=== PATIENT | female | born 1985 | race Caucasian/White ===

== ENCOUNTER 2018-05-12 08:35 | Emergency (ER) | payer OTHER, MEDICAID ==
[2018-05-12 08:41] VITALS: BP 116/82
[2018-05-12 09:16] LABS: APPEARANCE,URINE CLEAR; BILIRUBIN,URINE NEGATIVE (NEGATIVE); COLOR,URINE YELLOW; GLUCOSE, URINE NEGATIVE (NEGATIVE); KETONES,URINE NEGATIVE (NEGATIVE); LEUKOCYTE ESTERASE,URINE NEGATIVE (NEGATIVE); NITRITE,URINE NEGATIVE (NEGATIVE); PROTEIN,URINE NEGATIVE (NEGATIVE); URINE SPECIFIC GRAVITY 1.009; UROBILINOGEN,URINE NEGATIVE mg/dL (<2.0)
--- NOTE | 2018-05-12 09:26 | ER Document Report ---
ED GI/ - General Chief Complaint: Vaginal Bleeding Stated Complaint: VAGINAL BLEEDING Time Seen by Provider: 05/12/18 09:19 Mode of Arrival: Ambulatory Information source: Patient Notes: 32-year-old female patient comes emergency room for heavy vaginal bleeding in . Patient reports she began spotting Saturday morning 05/09/2018, Saturday evening she was bleeding about 1 pad per hour so she went to the emergency room at [facility]. An ultrasound showed a 6-week viable IUP with a heartbeat. She does not know what her hormone level was. She states her blood type is a positive. She continued to bleed through the weekend like a heavy period, although it got a little dog sitter last night. This morning while driving to work she felt a d[place] of blood and got dizzy. She found she had blood through the pad. She is now here for evaluation. TRAVEL OUTSIDE OF THE [place] IN LAST 30 DAYS: No - Related Data Allergies/Adverse Reactions: No Known Allergies Allergy (Verified 05/12/18 08:37) Past Medical History - General Information source: Patient Last Menstrual Period: 03/14/18 - Social History Smoking Status: Never Smoker Cigarette use (# per day): No Chew tobacco use (# tins/day): No Smoking Education Provided: No Frequency of alcohol use: None Drug Abuse: None Lives with: Family, Spouse/Significant other Family History: Reviewed & Not Pertinent Patient has suicidal ideation: No Patient has homicidal ideation: No - Medical History Medical History: Negative Past Surgical History: Reports: Hx Breast Surgery - lumpectomy bilateral, Hx Oral Surgery - wisdom, Hx Orthopedic Surgery - Ganglion cyst removed from left wrist x2 Review of Systems - Review of Systems Constitutional: No symptoms reported EENT: No symptoms reported Cardiovascular: No symptoms reported Respiratory: No symptoms reported Gastrointestinal: No symptoms reported Genitourinary: No symptoms reported Female Genitourinary: See HPI Musculoskeletal: No symptoms reported Skin: No symptoms reported Hematologic/Lymphatic: No symptoms reported Neurological/Psychological: No symptoms reported Physical Exam - Vital signs Vitals: Temp Pulse Resp BP Pulse Ox 97.7 F 64 18 116/82 100 05/12/18 08:39 05/12/18 08:39 05/12/18 08:39 05/12/18 08:39 05/12/18 08:39 Interpretation: Normal - Notes Notes: PHYSICAL EXAMINATION: GENERAL: Well-appearing, well-nourished and in no acute distress. HEAD: Atraumatic, normocephalic. EYES: Pupils equal round and reactive to light, extraocular movements intact, sclera anicteric, conjunctiva are normal. ENT: nares patent, oropharynx clear without exudates. Moist mucous membranes. NECK: Normal range of motion, supple without lymphadenopathy LUNGS: Breath sounds clear to auscultation bilaterally and equal. No wheezes rales or rhonchi. HEART: Regular rate and rhythm without murmurs ABDOMEN: Soft, nontender, normoactive bowel sounds. No guarding, no rebound. No masses appreciated. EXTREMITIES: Normal range of motion, no pitting or edema. No cyanosis. NEUROLOGICAL: Cranial nerves grossly intact. Normal speech, normal gait. Normal sensory, motor, and reflex exams. PSYCH: Normal mood, normal affect. SKIN: Warm, Dry, normal turgor, no rashes or lesions noted. Course - Re-evaluation Re-evalutation: 05/12/18 12:14 Records obtained by the peripheral vascular tech showed the ultrasound on 05/09/2018 showed an intrauterine gestation measuring 6 weeks 0 days, with a heart rate of 58. There was a small subchorionic hemorrhage. The hCG level that day was 1278.9 The hCG level now is 186.9, and the ultrasound does not show a visualized intra- or extrauterine . - Vital Signs Vital signs: Temp Pulse Resp BP Pulse Ox 97.7 F 64 18 116/82 100 05/12/18 08:39 05/12/18 08:39 05/12/18 08:39 05/12/18 08:39 05/12/18 08:39 - Laboratory Result Diagrams: 05/12/18 09:43 Laboratory results interpreted by me: 05/12/18 05/12/18 05/12/18 08:50 09:43 09:43 WBC 2.7 L Plt Count 149 L Absolute Neutrophils 1.2 L Beta HCG, Quant 186.89 H Urine Blood LARGE H Urine HCG, Qual POSITIVE H Discharge - Discharge Clinical Impression: Complete miscarriage Condition: Stable Disposition: HOME, SELF-CARE Additional Instructions: Miscarriage You have had a miscarriage (medically called a "spontaneous "). The miscarriage occurred because the fetus did not develop normally. There is nothing you did to cause it, and nothing you could have done to prevent it. About one in four ends in miscarriage. You should rest in bed for two or three days. As there is some risk of infection of the uterus, you should not have intercourse for one week (or until okayed by your physician). You might not have a period for six to eight weeks. You should not become again for at least three months -- the uterus requires time to get back to normal. Call the doctor or return for re-examination if there is heavy or persistent vaginal bleeding, fever, foul discharge, continued cramping pains, or abdominal pain.
[2018-05-12 09:56] LABS: ABSOLUTE LYMPHOCYTES (AUTO) 1.1 10^3/uL (0.5-4.7); ABSOLUTE MONOCYTES (AUTO) 0.3 10^3/uL (0.1-1.4); ABSOLUTE NEUT (AUTO) 1.2 10^3/uL (1.7-8.2); BASOPHILS % (AUTO) 0.5 % (0-2); EOSINOPHILS % (AUTO) 0.9 % (0-6); HEMATOCRIT 36.1 % (36.0-47.0); HEMOGLOBIN 12.8 g/dL (12.0-15.5); LYMPHOCYTES % (AUTO) 40.6 % (13-45); MEAN CORPUSCULAR HEMOGLOBIN 30.9 pg (27.0-33.4); MEAN CORPUSCULAR HGB CONC 35.4 g/dL (32.0-36.0); MEAN CORPUSCULAR VOLUME 87 fl (80-97); MONOCYTES % (AUTO) 11.8 % (3-13); PLATELET COUNT 149 10^3/uL (150-450); RED BLOOD COUNT 4.14 10^6/uL (3.72-5.28); RED CELL DISTRIBUTION WIDTH 12.4 % (11.5-14.0); SEGMENTED NEUTROPHILS % (AUTO) 46.2 % (42-78); TOTAL CELLS COUNTED % (AUTO) 100 %; WHITE BLOOD COUNT 2.7 10^3/uL (4.0-10.5)
--- NOTE | 2018-05-12 12:12 | RADIOLOGY REPORT (SQ) ---
EXAM DESCRIPTION: U/S OB TRANSVAG W/DOPPLER COMPLETED DATE/TIME: 05/12/2018 12:00 pm REASON FOR STUDY: 05-09-18 6wk w/ FHB, now heavy bleeding COMPARISON: None. TECHNIQUE: Transvaginal static and realtime grayscale images acquired of the pelvis. Additional salty cted spectral and color Doppler images recorded. All images stored on PACs. CLINICAL AGE: 8 weeks BHC, previously 1,278 LIMITATIONS: None. FINDINGS: UTERUS: No visualized intrauterine . RIGHT ADNEXA: Normal ovary with normal vascular flow. No adnexal free fluid. No adnexal masses. LEFT ADNEXA: Normal ovary with normal vascular flow. No adnexal free fluid. No adnexal masses. FREE FLUID: None. OTHER: No other significant finding. IMPRESSION: NO VISUALIZED INTRA- OR EXTRAUTERINE . demise. TECHNICAL DOCUMENTATION: JOB ID: [id number] [employer]- All Rights Reserved Reading location - IP/workstation name: [email or web address]
== END 2018-05-12 13:21 | disposition home or self-care (01) ==
LOC: ER 08:35
DX: O03.9 Complete or unspecified spontaneous abortion without complication (principal)
CPT/HCPCS: 36415; 76817; 81001; 81025; 84702; 85025; 93976; 99284

== ENCOUNTER 2018-12-06 17:46 | Emergency (ER) | payer OTHER, MEDICAID ==
--- NOTE | 2018-12-06 18:06 | ER Document Report ---
ED Medical Screen (RME) - General Chief Complaint: Vaginal Bleeding Stated Complaint: HEAVY VAGINAL BLEEDING Time Seen by Provider: 12/06/18 17:54 Mode of Arrival: Wheelchair Information source: Patient Notes: 33-year-old female presented to ED for a large amount of vaginal bleeding. She states that 2 weeks ago she had a D&C. She states about 445 this afternoon she was at [facility] when she passed a large blood clot vaginally. She states she put a pad on and she went to [employer] at about 530 she felt a large gush of blood going down both legs. She states she decided she needed to come right on over to the emergency room. She states about 6 PM she felt another large gush of blood while in the waiting room. Patient is alert oriented respirations regular and unlabored speaking in full sentences. She is very anxious. She is here with her and 4 children. I have greeted and performed a rapid initial assessment of this patient. A comprehensive ED assessment and evaluation of the patient, analysis of test results and completion of medical decision making process will be conducted by an additional ED providers. TRAVEL OUTSIDE OF THE [place] IN LAST 30 DAYS: No - Related Data Allergies/Adverse Reactions: No Known Allergies Allergy (Verified 12/06/18 17:48) Past Medical History Renal/ Medical History: Denies: Hx Peritoneal Dialysis Past Surgical History: Reports: Hx Breast Surgery - lumpectomy bilateral, Hx Oral Surgery - wisdom, Hx Orthopedic Surgery - Ganglion cyst removed from left wrist x2 Physical Exam - Vital signs Vitals: Temp Pulse Resp BP Pulse Ox 97.6 F 104 H 16 150/85 H 98 12/06/18 17:50 12/06/18 17:50 12/06/18 17:50 12/06/18 17:50 12/06/18 17:50 Course - Vital Signs Vital signs: Temp Pulse Resp BP Pulse Ox 97.6 F 104 H 16 150/85 H 98 12/06/18 17:50 12/06/18 17:50 12/06/18 17:50 12/06/18 17:50 12/06/18 17:50
[2018-12-06 18:53] LABS: ABSOLUTE EOSINOPHILS # (AUTO) 0.1 10^3/uL (0.0-0.6); ABSOLUTE MONOCYTES (AUTO) 0.4 10^3/uL (0.1-1.4); ABSOLUTE NEUT (AUTO) 4.3 10^3/uL (1.7-8.2); BASOPHILS % (AUTO) 0.3 % (0-2); EOSINOPHILS % (AUTO) 0.9 % (0-6); HEMATOCRIT 34.9 % (36.0-47.0); HEMOGLOBIN 12.3 g/dL (12.0-15.5); MEAN CORPUSCULAR HEMOGLOBIN 30.7 pg (27.0-33.4); MEAN CORPUSCULAR HGB CONC 35.1 g/dL (32.0-36.0); MEAN CORPUSCULAR VOLUME 87 fl (80-97); MONOCYTES % (AUTO) 5.5 % (3-13); PLATELET COUNT 222 10^3/uL (150-450); RED BLOOD COUNT 3.99 10^6/uL (3.72-5.28); RED CELL DISTRIBUTION WIDTH 12.8 % (11.5-14.0); SEGMENTED NEUTROPHILS % (AUTO) 64.3 % (42-78); TOTAL CELLS COUNTED % (AUTO) 100 %; WHITE BLOOD COUNT 6.8 10^3/uL (4.0-10.5)
[2018-12-06 19:04] LABS: ALBUMIN 4.9 g/dL (3.5-5.0); ALKALINE PHOSPHATASE 49 U/L (38-126); ANION GAP 9 (5-19); ASPARTATE AMINO TRANSFERASE 22 U/L (14-36); BILIRUBIN,DIRECT 0.2 mg/dL (0.0-0.4); BILIRUBIN,TOTAL 0.3 mg/dL (0.2-1.3); BLOOD UREA NITROGEN 13 mg/dL (7-20); CARBON DIOXIDE 29 mmol/L (22-30); CHLORIDE 102 mmol/L (98-107); GLUCOSE 103 mg/dL (75-110); POTASSIUM 3.6 mmol/L (3.6-5.0); TOTAL PROTEIN 7.2 g/dL (6.3-8.2)
[2018-12-06 19:14] LABS: AMORPHOUS SEDIMENT,URINE TRACE /HPF; APPEARANCE,URINE SLIGHTLY-CLOUDY; BILIRUBIN,URINE NEGATIVE (NEGATIVE); COLOR,URINE YELLOW; GLUCOSE, URINE NEGATIVE (NEGATIVE); KETONES,URINE NEGATIVE (NEGATIVE); LEUKOCYTE ESTERASE,URINE NEGATIVE (NEGATIVE); NITRITE,URINE NEGATIVE (NEGATIVE); PROTEIN,URINE NEGATIVE (NEGATIVE); URINE SPECIFIC GRAVITY 1.016; UROBILINOGEN,URINE NEGATIVE mg/dL (<2.0)
--- NOTE | 2018-12-06 19:17 | RADIOLOGY REPORT (SQ) ---
EXAM DESCRIPTION: U/S NON OB PEL TV W/DOPPLER COMPLETED DATE/TIME: 12/06/2018 6:57 pm REASON FOR STUDY: History of D and C from miscarriage 2 weeks ago. COMPARISON: None. TECHNIQUE: Dynamic and static grayscale images acquired of the pelvis via transvaginal approach and recorded on PACS. Additional selected color Doppler and spectral images recorded. LIMITATIONS: None. FINDINGS: UTERUS: The uterus measures 10.3 x 5.2 x 5.8 cm. ENDOMETRIAL STRIPE: The endometrium measures 2 cm Darling There is evidence of a complex mass within in the endometrial canal with increased vascularity. The possibility of retained products of conception could not be excluded. CERVIX: Cervix measures 2.9 cm. RIGHT OVARY AND DOPPLER: The right ovary measures 3.4 x 2.4 x 2.6 cm with Doppler flow. There is trixie dence of follicular cysts of the right ovary. LEFT OVARY AND DOPPLER: The left ovary measures 3 x 2.4 x 2.4 cm with Doppler flow. FREE FLUID: None noted. IMPRESSION: Findings most consistent retained products of conception within the endometrial canal. TECHNICAL DOCUMENTATION: JOB ID: [id number] [employer]- All Rights Reserved Rev-08/30 Reading location - IP/workstation name: [email or web address]
--- NOTE | 2018-12-06 19:43 | ER Document Report ---
ED GI/ - General Chief Complaint: Vaginal Bleeding Stated Complaint: HEAVY VAGINAL BLEEDING Time Seen by Provider: 12/06/18 17:54 Primary Care Provider: SHAWANDA KERN MD [JOSE YIN] - Follow up as needed Mode of Arrival: Wheelchair Information source: Patient Notes: Patient is a G7, P4 presenting to the emergency department with chief complaint of increased vaginal bleeding. Patient reports that 2 weeks ago she had a D&C done at 11 weeks gestation by [place] CONSTRUCTION DRIVER. Patient reports over the last few hours she has developed onset of passage of bright red vaginal bleeding with clots. She reports that her bleeding had actually settled down and was nearly gone until this evening. Patient denies any pain, and reports some mild abdominal cramping and denies any fevers, nausea, vomiting or chills. TRAVEL OUTSIDE OF THE [place] IN LAST 30 DAYS: No - Related Data Allergies/Adverse Reactions: No Known Allergies Allergy (Verified 12/06/18 17:48) Past Medical History - General Information source: Patient - Social History Smoking Status: Never Smoker Frequency of alcohol use: None Drug Abuse: None Family History: Reviewed & Not Pertinent Patient has suicidal ideation: No Patient has homicidal ideation: No - Medical History Medical History: Negative Renal/ Medical History: Denies: Hx Peritoneal Dialysis Past Surgical History: Reports: Hx Breast Surgery - lumpectomy bilateral, Hx Oral Surgery - wisdom, Hx Orthopedic Surgery - Ganglion cyst removed from left wrist x2 Review of Systems - Review of Systems Constitutional: No symptoms reported EENT: No symptoms reported Cardiovascular: No symptoms reported Respiratory: No symptoms reported Gastrointestinal: No symptoms reported Genitourinary: No symptoms reported Female Genitourinary: Vaginal bleeding Musculoskeletal: No symptoms reported Skin: No symptoms reported Hematologic/Lymphatic: No symptoms reported Neurological/Psychological: No symptoms reported Physical Exam - Vital signs Vitals: Temp Pulse Resp BP Pulse Ox 97.6 F 104 H 16 150/85 H 98 12/06/18 17:50 12/06/18 17:50 12/06/18 17:50 12/06/18 17:50 12/06/18 17:50 - Notes Notes: PHYSICAL EXAMINATION: GENERAL: Well-appearing, well-nourished and in no acute distress. HEAD: Atraumatic, normocephalic. EYES: Pupils equal round and reactive to light, extraocular movements intact, conjunctiva are normal. ENT: Nares patent, oropharynx clear without exudates. Moist mucous membranes. NECK: Normal range of motion, supple without lymphadenopathy LUNGS: Breath sounds clear to auscultation bilaterally and equal. No wheezes rales or rhonchi. HEART: Regular rate and rhythm without murmurs ABDOMEN: Soft, nontender, nondistended abdomen. No guarding, no rebound. No masses appreciated. Female : Moderate bleeding noted with speculum exam, no cervical motion tenderness or adnexal tenderness. Musculoskeletal: Normal range of motion, no pitting or edema. No cyanosis. NEUROLOGICAL: Cranial nerves grossly intact. Normal speech, normal gait. Normal sensory, motor exams PSYCH: Normal mood, normal affect. SKIN: Warm, Dry, normal turgor, no rashes or lesions noted. Course - Re-evaluation Re-evalutation: 12/06/18 19:42 Consulted on-call CONSTRUCTION DRIVER, Dr. Lemus who recommends repeating CBC. If CBC stable and patient hemodynamically stable okay to discharge home with plan to follow-up outpatient. Repeat hemoglobin has dropped, this was discussed with my attending, Dr. Shelton who recommends giving patient TXA and repeating another CBC in 2 hours. Patient continues to be hemodynamically stable, her vital signs are within normal limits she has not had any episodes of tachycardia or hypotension and the patient actually reports that she feels well. The TXA slightly slowed down patient's bleeding however she does still have a slow trickle of blood noted. I will plan to call CONSTRUCTION DRIVER after the next CBC if it has dropped again. 12/06/18 22:[address] Lemus and discussed patient's hemoglobin dropped from 12.3-10.7 over 4-hour timeframe. She does recommend that since patient is stable has not had a drop in her blood pressure and is not tachycardic that patient can receive 10 mg of estrogen and be discharged home with strict ED return precautions. This was discussed with patient and her who are requesting to go home. I discussed with them that they had very strict return precautions to include worsening or increase of the amount of bleeding, bleeding through more than 1 pad per hour for 4 hours consecutive or development of fever. They report that they have an appointment scheduled for Saturday with her CONSTRUCTION DRIVER, they will call Saturday to schedule a sooner appointment if necessary. I did tell them that they are welcome to come back here to the emergency department as well we are happy to reevaluate her at any time. - Vital Signs Vital signs: Temp Pulse Resp BP Pulse Ox 98.5 F 68 16 113/81 100 12/06/18 19:38 12/06/18 23:40 12/06/18 23:40 12/06/18 23:40 12/06/18 23:40 - Laboratory Result Diagrams: 12/06/18 22:12 12/06/18 18:22 Laboratory results interpreted by me: 12/06/18 12/06/18 12/06/18 18:22 18:22 18:22 RBC Hgb Hct 34.9 L Absolute Neuts (auto) Seg Neutrophils % Serum HCG, Qual POSITIVE H Beta HCG, Quant 1091.80 H Urine Blood 12/06/18 12/06/18 12/06/18 18:56 20:21 22:12 RBC 3.57 L 3.43 L Hgb 11.1 L 10.7 L Hct 31.2 L 30.2 L Absolute Neuts (auto) 8.3 H Seg Neutrophils % 81.6 H Serum HCG, Qual Beta HCG, Quant Urine Blood MODERATE H Discharge - Discharge Clinical Impression: Vaginal bleeding Condition: Stable Disposition: HOME, SELF-CARE Additional Instructions: As discussed you did have a drop in your hemoglobin here in the emergency department today we have given you 2 different medications to help slow down the bleeding one of them was TXA and the other one was Premarin. I have spoke with our on-call CONSTRUCTION DRIVER regarding her case tonight. She recommends discharging you home with strict return precautions. If you start having worsening of your bleeding, bleeding through more than 1 pad per hour for 4 hours consecutively or develop a fever please return to the emergency department for immediate evaluation. Otherwise please follow-up with the HYDRO STATION OPERATOR that did your procedure on Saturday. If you are unable to get into see them you are one welcome to call and make an appointment with our CONSTRUCTION DRIVER on-call. The one that I spoke with this evening's name was Dr. Lemus, her office phone number is below. Forms: Return to Work Referrals: SHAWANDA KERN MD [[facility]] - Follow up as needed
[2018-12-06 20:34] LABS: ABSOLUTE LYMPHOCYTES (AUTO) 1.3 10^3/uL (0.5-4.7); ABSOLUTE MONOCYTES (AUTO) 0.5 10^3/uL (0.1-1.4); ABSOLUTE NEUT (AUTO) 8.3 10^3/uL (1.7-8.2); BASOPHILS % (AUTO) 0.2 % (0-2); EOSINOPHILS % (AUTO) 0.3 % (0-6); HEMATOCRIT 31.2 % (36.0-47.0); HEMOGLOBIN 11.1 g/dL (12.0-15.5); LYMPHOCYTES % (AUTO) 13.1 % (13-45); MEAN CORPUSCULAR HEMOGLOBIN 31.2 pg (27.0-33.4); MEAN CORPUSCULAR HGB CONC 35.6 g/dL (32.0-36.0); MEAN CORPUSCULAR VOLUME 88 fl (80-97); MONOCYTES % (AUTO) 4.8 % (3-13); PLATELET COUNT 198 10^3/uL (150-450); RED BLOOD COUNT 3.57 10^6/uL (3.72-5.28); RED CELL DISTRIBUTION WIDTH 13.1 % (11.5-14.0); SEGMENTED NEUTROPHILS % (AUTO) 81.6 % (42-78); TOTAL CELLS COUNTED % (AUTO) 100 %; WHITE BLOOD COUNT 10.1 10^3/uL (4.0-10.5)
[2018-12-06] MEDS ORDERED: TRANEXAMIC ACID INJ/PF 1,000 MG/10 ML SDV IV ONE (20:50)
[2018-12-06 22:31] LABS: ABSOLUTE LYMPHOCYTES (AUTO) 1.6 10^3/uL (0.5-4.7); ABSOLUTE MONOCYTES (AUTO) 0.4 10^3/uL (0.1-1.4); ABSOLUTE NEUT (AUTO) 6.6 10^3/uL (1.7-8.2); BASOPHILS % (AUTO) 0.1 % (0-2); EOSINOPHILS % (AUTO) 0.3 % (0-6); HEMATOCRIT 30.2 % (36.0-47.0); HEMOGLOBIN 10.7 g/dL (12.0-15.5); LYMPHOCYTES % (AUTO) 18.8 % (13-45); MEAN CORPUSCULAR HEMOGLOBIN 31.2 pg (27.0-33.4); MEAN CORPUSCULAR HGB CONC 35.4 g/dL (32.0-36.0); MEAN CORPUSCULAR VOLUME 88 fl (80-97); MONOCYTES % (AUTO) 4.3 % (3-13); PLATELET COUNT 190 10^3/uL (150-450); RED BLOOD COUNT 3.43 10^6/uL (3.72-5.28); RED CELL DISTRIBUTION WIDTH 12.9 % (11.5-14.0); SEGMENTED NEUTROPHILS % (AUTO) 76.5 % (42-78); TOTAL CELLS COUNTED % (AUTO) 100 %; WHITE BLOOD COUNT 8.6 10^3/uL (4.0-10.5)
[2018-12-06] MEDS ORDERED: ESTROGENS,CONJUGATED 25 MG VIAL IV ONE (22:45)
[2018-12-06] MEDS ORDERED: ESTROGENS,CONJUGATED 25 MG VIAL ONE (23:00)
[2018-12-06 23:41] VITALS: BP 113/81
== END 2018-12-06 23:43 | disposition home or self-care (01) ==
LOC: ER 17:46
DX: O20.9 Hemorrhage in early pregnancy, unspecified (principal); Z3A.11 11 weeks gestation of pregnancy
CPT/HCPCS: 99284; 96374; 96375; 86900; 86901; 36415; 86850; 84702; 84703; 85025; 80053; 81001; 76830; 93976; J1410; J3490